=== PATIENT | female | born 1960 | race Caucasian/White ===

== ENCOUNTER 2016-05-27 18:19 | Inpatient (IN) | payer MEDICAID ==
[~2016-05-27] VITALS: Ht 165.1 cm; Wt 54.2 kg
[2016-05-27] MEDS ORDERED: UNKNOWN BP MED (18:29)
[2016-05-27] MEDS ORDERED: SODIUM CHLORIDE 0.9% 1,000ML IVBOLUS ONE ×2 (18:30→19:00)
[2016-05-27] MEDS ORDERED: SODIUM CHLORIDE FLUSH 10ML SYR IVF ONE (18:30)
[2016-05-27] MEDS ORDERED: AZITHROMYCIN 500 MG in SODIUM CHLORIDE 0.9% 250 ML IVPB ONE (19:00)
[2016-05-27] MEDS ORDERED: ONDANSETRON 2MG/ML, 2ML IVP ONE (19:00)
[2016-05-27] MEDS ORDERED: MORPHINE SULFATE 4 MG/ML, 1ML IVPush PRN ×2 (19:00→20:30)
[2016-05-27] MEDS ORDERED: ACETAMINOPHEN 325 MG TABLET PO ONE ×2 (19:00→19:30)
[2016-05-27] MEDS ORDERED: CEFTRIAXONE PMX 1GM/50ML 50 ML IVPB ONE (19:00)
[2016-05-27] MEDS ORDERED: MORPHINE SULFATE 4 MG/ML, 1ML ONE (19:03)
[2016-05-27] MEDS ORDERED: ONDANSETRON 2MG/ML, 2ML ONE (19:03)
[2016-05-27] MEDS ORDERED: ACETAMINOPHEN 325 MG TABLET ONE (19:04)
[2016-05-27] MEDS ORDERED: CEFTRIAXONE PMX 1GM/50ML 50 ML ONE (19:04)
[2016-05-27 19:17] LABS: BLOOD UREA NITROGEN 21 mg/dL (7-18)
[2016-05-27 19:21] LABS: IS PT STATUS REG ER OR PRE ER? YES
[2016-05-27] MEDS ORDERED: ACETAMINOPHEN 325 MG TABLET PO PRN (20:30)
[2016-05-27] MEDS ORDERED: POLYETHYLENE GLYCOL 17 GM PACKET PO PRN (20:30)
[2016-05-27] MEDS ORDERED: KETOROLAC 30 MG/1 ML IVPush PRN (20:30)
[2016-05-27] MEDS ORDERED: BISACODYL 10 MG SUPP PR PRN (20:30)
[2016-05-27] MEDS: CEFTRIAXONE PMX 1GM/50ML 50 ML IV SCH (20:30)
[2016-05-27] MEDS: ENOXAPARIN 40 MG/0.4 ML SQ SCH (20:30)
[2016-05-27] MEDS ORDERED: ENALAPRILAT 1.25 MG/ML, 2ML IVPush PRN (20:30)
[2016-05-27] MEDS ORDERED: ZOLPIDEM 5MG TABLET PO PRN (20:30)
[2016-05-27] MEDS ORDERED: ONDANSETRON 2MG/ML, 2ML IVP PRN (20:30)
[2016-05-27] MEDS ORDERED: IBUPROFEN 600 MG TABLET PO PRN (20:30)
[2016-05-27] MEDS: AZITHROMYCIN 500 MG in SODIUM CHLORIDE 0.9% 250 ML IV SCH (20:30)
[2016-05-27] MEDS ORDERED: DOCUSATE 100 MG CAPSULE PO PRN (20:30)
[2016-05-27] MEDS ORDERED: GUAIFENESIN/DM 200-20MG, 10ML UDC PO PRN (20:30)
[2016-05-27 20:55] VITALS: BP 154/88
[2016-05-27] MEDS: SODIUM CHLORIDE 0.9% 1,000 ML IV SCH (22:29)
[2016-05-27 22:30] VITALS: BP 154/88
[2016-05-28] MEDS: SODIUM CHLORIDE 0.9% 1,000 ML IV SCH ×2 (01:13→08:14)
[2016-05-28 02:24] VITALS: BP 145/82
[2016-05-28 05:50] LABS: ASPARTATE AMINO TRANSFERASE 13 U/L (15-37); BLOOD UREA NITROGEN 14 mg/dL (7-18)
[2016-05-28 07:25] VITALS: BP 124/76
[2016-05-28] MEDS: LOSARTAN 25MG TABLET PO SCH ×2 (08:13→20:31)
[2016-05-28] MEDS: HYDROcodone/APAP 5/325 TABLET PO PRN ×2 (09:02→18:52)
[2016-05-28 12:55] VITALS: BP 121/74
[2016-05-28 20:00] VITALS: BP 139/86
[2016-05-28] MEDS: AZITHROMYCIN 500 MG in SODIUM CHLORIDE 0.9% 250 ML IV SCH (20:31)
[2016-05-28] MEDS: ENOXAPARIN 40 MG/0.4 ML SQ SCH (20:32)
[2016-05-28] MEDS: CEFTRIAXONE PMX 1GM/50ML 50 ML IV SCH (22:41)
[2016-05-29 02:44] VITALS: BP 125/85
[2016-05-29 07:35] VITALS: BP 138/77
[2016-05-29] MEDS: HYDROcodone/APAP 5/325 TABLET PO PRN (08:03)
[2016-05-29] MEDS: LOSARTAN 25MG TABLET PO SCH ×2 (08:04→20:33)
[2016-05-29 14:35] VITALS: BP 128/78
[2016-05-29 19:41] VITALS: BP 118/76
[2016-05-29] MEDS: ENOXAPARIN 40 MG/0.4 ML SQ SCH (20:30)
[2016-05-29] MEDS: AZITHROMYCIN 500 MG in SODIUM CHLORIDE 0.9% 250 ML IV SCH (20:33)
[2016-05-29] MEDS: CEFTRIAXONE PMX 1GM/50ML 50 ML IV SCH (22:20)
[2016-05-30 05:03] VITALS: BP 137/85
[2016-05-30] MEDS: LOSARTAN 25MG TABLET PO SCH (08:04)
[2016-05-30 08:05] VITALS: BP 118/76
[2016-05-30] MEDS ORDERED: ACET325T14 PO (10:12)
[2016-05-30] MEDS ORDERED: LOSA25TA2 PO (10:12)
[2016-05-30] MEDS ORDERED: CEFD300C2 PO (10:12)
[2016-05-30] MEDS ORDERED: DOCU-30 PO (10:12)
[2016-05-30] MEDS ORDERED: AZIT500T4 PO (10:12)
== END 2016-05-30 11:22 | disposition home or self-care (01) | DRG 871 ==
LOC: ED 19:06 → EDIP 20:25 → 3NE 20:53 → DCLOUNGE 05-30 11:00
DX: A41.9 Sepsis, unspecified organism (principal); J18.9 Pneumonia, unspecified organism; E44.0 Moderate protein-calorie malnutrition; Z68.1 Body mass index [BMI] 19.9 or less, adult; I10 Essential (primary) hypertension; Z59.0 Homelessness
CPT/HCPCS: 36415; 71010; 71020; 80048; 80053; 82040; 83605; 84145; 84484; 85025; 85379; 87040; 93005; 96365; 96368; 96375; J0456; J0696; J1650; J2405; J7030; J7050

== ENCOUNTER 2016-10-11 10:27 | Emergency (ER) | payer MEDICAID ==
[~2016-10-11] VITALS: Ht 165.1 cm; Wt 57.6 kg
[~2016-10-11 10:27] MED LIST: ACET325T14 PO; AZIT500T5 PO; CEFD300C37 PO; DOCU-131 PO; LOSA25TA2 PO; UNKNOWN BP MED
[2016-10-11 10:45] VITALS: BP 151/87
[2016-10-11] MEDS ORDERED: DIPH,PERTUSS(ACELL),TET VAC/PF 0.5 ML IM-VACC ONE ×2 (11:12→11:30)
[2016-10-11] MEDS ORDERED: LIDOCAINE 1%, 20ML ONE (11:12)
[2016-10-11] MEDS ORDERED: LIDOCAINE 1%, 20ML INFIL ONE (11:30)
[2016-10-11] MEDS ORDERED: BACITRACIN ZINC OINT 500U/GM, 0.9 GM ONE (11:46)
[2016-10-11] MEDS ORDERED: CEPHALEXIN 500 MG CAPSULE ONE (12:28)
[2016-10-11] MEDS ORDERED: CEPHALEXIN 500 MG CAPSULE PO ONE (12:30)
== END 2016-10-11 12:53 | disposition home or self-care (01) ==
LOC: ED 12:52
DX: S91.332A Puncture wound without foreign body, left foot, initial encounter (principal); W45.8XXA Other foreign body or object entering through skin, initial encounter; Y93.89 Activity, other specified; Y92.89 Other specified places as the place of occurrence of the external cause; Y99.8 Other external cause status
CPT/HCPCS: 12041; 90471; 90715

== ENCOUNTER 2018-05-12 23:58 | Emergency (ER) | payer MEDICAID ==
[~2018-05-12] VITALS: Ht 162.6 cm; Wt 60.0 kg
[~2018-05-12 23:58] MED LIST changes: +IBUP-1484 PO
[2018-05-13 00:02] VITALS: BP 158/99
--- NOTE | 2018-05-13 00:20 | NUR ---
CONTACT LENS MOLDER: PT DOES NOT WANT TO FILE A POLICE REPORT AT THIS TIME.
[2018-05-13] MEDS ORDERED: HYDROcodone/APAP 5/325 TABLET PO PRN (00:30)
[2018-05-13] MEDS ORDERED: HYDROcodone/APAP 5/325 TABLET ONE (00:34)
[2018-05-13] MEDS ORDERED: LIDOCAINE-MPF 1%, 5ML ONE ×2 (00:34→01:27)
--- NOTE | 2018-05-13 00:52 | NUR ---
PA TO ROOM, PREPARING FOR SUTURING
[2018-05-13] MEDS ORDERED: LIDOCAINE-MPF 1%, 5ML INFIL ONE (01:00)
[2018-05-13] MEDS ORDERED: PENICILLIN VK 500MG TABLET PO STA (01:07)
== END 2018-05-13 01:57 | disposition home or self-care (01) ==
LOC: ED 05-13 01:49
DX: S01.511A Laceration without foreign body of lip, initial encounter (principal); G43.909 Migraine, unspecified, not intractable, without status migrainosus; Y09 Assault by unspecified means; Y93.89 Activity, other specified; Y92.830 Public park as the place of occurrence of the external cause; Y99.8 Other external cause status
CPT/HCPCS: 12051; 70450; 70486; 99284